=== PATIENT | male | born 1955 | race Caucasian/White ===

== ENCOUNTER → 2020-12-30 | Outpatient (CLI) | payer MEDICARE ==
[~2020-12-30] MED LIST: ACCU1TAB OR; AMAR1TAB6 OR; AMLO10TAB OR; ASPI325T OR; ATEN50TA2 OR; CELE10TA OR; DEPA500T2 OR; FOLI1TAB OR; GLUCTAB2 OR; HYDR25TA7 OR; INSULANT SC; LISI40TA OR; LITH450T OR; MELOPOW XX; MULTIVIT PO; THIA100T OR; TRAZ100T OR; bystolic PO
--- NOTE | 2020-12-30 13:53 | REP ---
INDICATION: SPRAIN. COMPARISON: None. TECHNIQUE: Four views FINDINGS: There is no evidence of an acute fracture or destructive osseous lesion. Well-demarcated lucencies are seen in the scaphoid and 1 in the trapezium and 1 in the lunate. These are likely simple cysts or possible small interosseous ganglia IMPRESSION: No acute abnormality. Findings as described above. <Electronically signed by Dick Ledbetter > 12/30/20 [id number]
== END ==
LOC: M WUC 13:31
PROVIDERS: ATTEND Physician Assistant
DX: S63.511A Sprain of carpal joint of right wrist, initial encounter (principal); X58.XXXA Exposure to other specified factors, initial encounter; Y92.89 Other specified places as the place of occurrence of the external cause; Y93.89 Activity, other specified; Y99.8 Other external cause status